=== PATIENT | female | born 1950 | race Caucasian/White ===

== ENCOUNTER → 2017-01-04 | Outpatient (CLI) | payer MEDICARE ==
--- NOTE | 2017-01-04 09:46 | MR ---
EXAMINATION TYPE: MR lumbar spine wo con DATE OF EXAM: 01/04/2017 COMPARISON: NONE HISTORY: Low back pain, leg pain TECHNIQUE: T1 and T2 axial and sagittal images of the lumbar spine are submitted. FINDINGS: There is no abnormal signal seen within the visualized spinal cord or paraspinal soft tissu es. At L1-2 there is hypertrophic arthropathy of the facet joints noted. No canal stenosis or neural fora glenn encroachment. Vertebral body hemangioma of L2. At L2-3 there is diffuse circumferential disc bulging. Arthropathy of the facet joints. Mild bilatera l foraminal encroachment and mild canal stenosis. At L3-4 there is diffuse disc bulging with severe hypertrophy of the ligamentum flavum and facet join ts and moderate to severe canal stenosis and severe bilateral foraminal encroachment greater on the r ight. Broad-based central disc protrusion noted. At L4-5 there is grade 1 anterolisthesis secondary to severe facet arthropathy. Ligamentum flavum hyp ertrophy noted there is diffuse disc bulging and moderate to severe canal stenosis with bilateral for aminal encroachment. At L5-S1 there is marked facet arthropathy. No Canal stenosis. Moderate bilateral foraminal encroachm ent greater on the right. IMPRESSION: 1. Multilevel degenerative disc disease with grade 1 anterolisthesis of L4 on L5. Multilevel severe f acet arthropathy with canal stenosis at levels L2-3, L3-4, and L4-5 with most marked changes at L3-4 and L4-5. Significant bilateral foraminal encroachment.
== END | disposition home or self-care (01) ==
LOC: RADMRIMAIN 08:41
PROVIDERS: ATTEND Orthopaedic Surgery
DX: M48.06 Spinal stenosis, lumbar region (principal); M43.16 Spondylolisthesis, lumbar region; M51.36 Other intervertebral disc degeneration, lumbar region; M46.86 Other specified inflammatory spondylopathies, lumbar region
CPT/HCPCS: 72148

== ENCOUNTER → 2017-02-13 | Outpatient (CLI) | payer MEDICARE ==
[2017-02-10 11:41] VITALS: BMI 38.7
[2017-02-13 13:09] VITALS: BP 133/67; PULSE 97; RESP 16; TEMP 98
--- NOTE | 2017-02-13 13:36 | P.CONS ---
History of Present Illness - Reason for Consult Consult date: 02/13/17 - Chief Complaint Right knee pain and numbness - History of Present Illness This is a 66-year-old female who was referred to our clinic for back pain but the patient denies any back pain at this point and she said that physical therapy has been helping her back pain however she does have right knee pain that started after her total knee replacement in June 2015 and since that time she's been having numbness above the knee joint on the right side with a feeling of burning and tightness. This feeling as not constant and there is no consistent exacerbating factors. The pain gets worse by walking and improves by sitting down but does not go away completely. The patient denies any swelling in the knee. Been using tramadol and Naprosyn to help with her pain. The pain does not wake the patient up at night. The patient denies any pain to touch. Past Medical History Past Medical History: Diabetes Mellitus, Eye Disorder, Hyperlipidemia, Hypertension, Osteoarthritis (OA) Additional Past Medical History / Comment(s): PAIN RT KNEE, CURRENT BEING TX FOR ALLERGIC REACTION TO EYE DROPS, STATES EYES RED, ITCHING,SCALY, GLAUCOMA bilaterally, History of Any Multi-Drug Resistant Organisms: None Reported Past Surgical History: Hysterectomy, Joint Replacement, Orthopedic Surgery, Tonsillectomy Additional Past Surgical History / Comment(s): 06/24/15 Total R knee arthroplasty. BARBARA CATARACT, LT CARPAL TUNNEL. RIGHT KNEE ARTHROSCOPY Past Anesthesia/Blood Transfusion Reactions: Previous Problems w/ Anesthesia Additional Past Anesthesia/Blood Transfusion Reaction / Comm: HARD TIME TO WAKE UP Past Psychological History: No Psychological Hx Reported Additional Psychological History / Comment(s): . Smoking Status: Never smoker Past Alcohol Use History: None Reported Past Drug Use History: None Reported - Past Family History Father Family Medical History: Congestive Heart Failure (CHF) Additional Family Medical History / Comment(s): Father of CHF at age 65 yrs. Mother Family Medical History: Diabetes Mellitus Medications and Allergies Home Medications Medication Instructions Recorded Confirmed Type Glimepiride [Amaryl] 4 mg PO HS 12/05/14 02/13/17 History metFORMIN HCL [Glucophage] 1,000 mg PO BID 12/05/14 02/13/17 History Glimepiride [Amaryl] 2 mg PO AC-BRKFST 02/10/17 02/13/17 History Naproxen [Naprosyn] 500 mg PO Q12HR 02/10/17 02/13/17 History diphenhydrAMINE [Benadryl] 25 mg PO QID PRN 02/10/17 02/13/17 History traMADol HCL [Ultram] 50 mg PO Q6HR PRN 02/10/17 02/13/17 History Latanoprost Ophth [Xalatan 0.005%] 1 drops BOTH EYES HS 02/13/17 02/13/17 History Losartan [Cozaar] 50 mg PO DAILY 02/13/17 02/13/17 History traMADol HCL [Ultram] 50 mg PO Q6HR PRN 02/13/17 02/13/17 History Allergies Allergy/AdvReac Type Severity Reaction Status Date / Time No Known Allergies Allergy Verified 02/13/17 12:54 Physical Exam Vitals: Vital Signs Temp Pulse Resp BP 02/13/17 12:59 98.0 F 97 16 133/67 - Psychiatric Psychiatric: A&O x's 3, appropriate affect, intact judgment & insight Neuro exam of the lower extremities showed absent deep tendon reflexes bilaterally and symmetrically. The patient has normal muscle strength in the lower extremities. There is no tenderness in the lumbar paravertebral area and no tenderness in the right greater trochanter. Straight leg raising test negative bilaterally. There is no allodynia to touch around the right knee joint and there is no swelling there also there is no tenderness at the joint line. The patient has normal pulse on the right dorsalis pedis. Assessment and Plan Plan: The patient had an MRI on the lumbar spine which shows severe lumbar stenosis at the L3 4 and L4 5 levels. The patient understands that her numbness in the right knee joint will take time and whatever injection we do on her most likely will not help her numbness however we can do one lumbar epidural steroid injection at the L3 4 level in the right paramedian approach under fluoroscopic guidance to see if this would help her right knee pain but if it does not then her pain most likely won't be coming from the knee joint itself and it is the case then we can try to do a diagnostic genicular nerve blocks. I thank you for the consultation.
== END ==
LOC: PNWHC3 12:37
PROVIDERS: ATTEND Anesthesiology
DX: M48.061 Spinal stenosis, lumbar region without neurogenic claudication (principal); I10 Essential (primary) hypertension; E78.5 Hyperlipidemia, unspecified; E11.9 Type 2 diabetes mellitus without complications; Z79.899 Other long term (current) drug therapy; Z79.84 Long term (current) use of oral hypoglycemic drugs; Z79.891 Long term (current) use of opiate analgesic
CPT/HCPCS: 99211

== ENCOUNTER → 2017-03-22 | Outpatient (CLI) | payer MEDICARE ==
[2017-03-22 13:18] VITALS: BP 198/84; PULSE 106; RESP 22; TEMP 97.9
--- NOTE | 2017-03-22 14:06 | P.PN ---
Subjective Progress Note Date: 03/22/17 This is a follow-up visit for this 66 years old female, with a chronic history of severe right knee pain and numbness and burning sensation, started approximately 2 months , after right knee replacement, she denies any fever or night sweats denies any discharge from the knee area, and she feels that the pain localized around the right knee, she is done through courses of physical therapy, which helped her knee movement, but it did not help her burning sensation, and she is currently using tramadol and naproxen, which is not helping enough to control her pain, then lumbar epidural steroid injections , few weeks ago ,right paramedian approach, at the L3-4 level and she has no benefit and Objective - Vital Signs Vital signs: Vital Signs Temp 97.9 F 03/22/17 13:13 Pulse 106 H 03/22/17 13:13 Resp 22 03/22/17 13:13 BP 198/84 03/22/17 13:13 Pulse Ox 98 03/22/17 13:13 Intake & Output 03/21/17 03/22/17 03/22/17 18:59 06:59 18:59 Weight 108.862 kg - Exam Physical Examinations : 1-Constitutiona : Cooperative , not in acute distress . 2-HEENT : nech ; supple , no Lymphadenopathy , normal thyroid size . eyes : no ptosis , no icterus, no photophobia . ENT : normal of hearing , normal oropharynx , no Thrush . 3- Respiratory : Chest clear to auscultations Bilaterally , no wheezing , no Rhonchi . 4- Cardiovascular : regular rate and rhythem , S1 , S2 , no S3 , no S4. 5- Gastrointestinal : abdomen soft no tenderness , bowel sounds positive all four quadrents , no organomegally . 6- Genitourinary : Defferred . 7- neurologic : Cranial nerve II to XII intact , no focal neurological deffecit . 8-psychatric : alert , oriented X 3 , appropriate affect , intact judgment and insight . 9-Lymphatic : no Lymphadenopathy . 10- musculoskeltal : , Lumber spine = normal moter stegnth lower extremities ,thigh and legs .5/5 deep tendon reflexes : normal Knee Jerk , normal ankle Jerk . Negative lumber facet Loading Test strait leg raising test negative Fabere test negative Right knee, full range of motion ,no restrictions, no pain and no tenderness, scar healed appropriately, no discharge Normal sensation at the knee area Assessment and Plan Plan: Assessment and plan= right knee genicular nerve neuralgia Patient will be scheduled to have right sided genicular nerve block under fluoroscopy guidance, (without steroid ) and if she had good results, the we will proceed with the radiofrequency ablation of the genicular nerve , procedure risk and benefits and alternatives discussed with the patient she agreed with proceeding, also patient could benefit from Neurontin 100 mg 3 times a day, patient should continue to use her Ultram 50 mg every 8 hours when necessary for breakthrough pain and naproxen 500 mg twice a day when necessary Time with Patient: Less than 30
== END ==
LOC: PNWHC3 12:59
PROVIDERS: ATTEND Specialist
DX: G58.8 Other specified mononeuropathies (principal); Z79.891 Long term (current) use of opiate analgesic; Z79.899 Other long term (current) drug therapy
CPT/HCPCS: 99211

== ENCOUNTER 2021-11-05 20:11 | Observation (INO) | payer MEDICARE ==
--- NOTE | 2021-11-06 00:07 | ED ---
Chest Pain HPI - General Chief Complaint: Chest Pain Stated Complaint: Chest pain,JUN Time Seen by Provider: 11/05/21 23:11 Source: patient Mode of arrival: wheelchair Limitations: no limitations - History of Present Illness Initial Comments: This patient is 71-year-old woman who complains of pain across the upper chest and at the sternal notch that started around 5 PM. She states that it was a pounding and a burning sensation. She thought that it may be her esophagus but as it was not getting better she came to be evaluated here. She also complains of having a very dry throat and nausea. MD Complaint: chest pain Onset/Timin -: hour(s) Onset: during rest Pain Location: substernal, left chest, right chest Pain Radiation: none Severity: moderate Quality: aching, other (Burning) Improves With: nothing Worsens With: nothing Anginal Symptoms: nausea Treatments Prior to Arrival: none - Related Data Home Medications Medication Instructions Recorded Confirmed Latanoprost Ophth [Xalatan 0.005%] 1 drop BOTH EYES HS 02/13/17 11/06/21 Apixaban [Eliquis] 5 mg PO BID 11/06/21 11/06/21 Cyanocobalamin (Vitamin B-12) 1,000 mcg PO DAILY 11/06/21 11/06/21 [Vitamin B-12] Dulaglutide [Trulicity] 1.5 mg SQ MO 11/06/21 11/06/21 Ferrous Sulfate [Iron (65 MG 325 mg PO BID 11/06/21 11/06/21 Elemental)] Glimepiride [Amaryl] 4 mg PO DAILY 11/06/21 11/06/21 Losartan [Cozaar] 25 mg PO DAILY 11/06/21 11/06/21 Magnesium Oxide 400 mg PO DAILY 11/06/21 11/06/21 Torsemide [Demadex] 10 mg PO DAILY 11/06/21 11/06/21 allopurinoL [Zyloprim] 200 mg PO DAILY 11/06/21 11/06/21 Previous Rx's Medication Instructions Recorded Amiodarone [Cordarone] 400 mg PO BID #180 tab 11/08/21 Metoprolol Succinate (ER) [Toprol 150 mg PO DAILY #90 tab 11/08/21 XL] Atorvastatin [Lipitor] 20 mg PO HS #30 tab 11/09/21 Allergies Allergy/AdvReac Type Severity Reaction Status Date / Time iron infusion Allergy Anaphylaxis Uncoded 11/06/21 13:06 Review of Systems ROS Statement: Those systems with pertinent positive or pertinent negative responses have been documented in the HPI. ROS Other: All systems not noted in ROS Statement are negative. Constitutional: Denies: fever, chills Respiratory: Denies: cough, dyspnea Cardiovascular: Reports: as per HPI, chest pain, palpitations. Denies: edema Gastrointestinal: Reports: nausea. Denies: abdominal pain, vomiting Genitourinary: Denies: dysuria, hematuria Musculoskeletal: Denies: back pain Skin: Denies: rash Neurological: Denies: headache EKG Findings - Dysrhythmias: Supraventricular dysrhythmia: atrial fibrillation (Rate proximally 102) - Blocks, [place], Hypertrophy, ST Abn: AV and intraventricular conduction: right bundle branch block (fixed/intermittent, complete/incomplete), left anterior fascicular block Chamber hypertrophy or enlargement: left ventricular hypertrophy or enlargement (LVE) Past Medical History Past Medical History: Diabetes Mellitus, Eye Disorder, Hyperlipidemia, Hypertension, Osteoarthritis (OA) Additional Past Medical History / Comment(s): PAIN RT KNEE, GLAUCOMA bilaterally, History of Any Multi-Drug Resistant Organisms: None Reported Past Surgical History: Hysterectomy, Joint Replacement, Orthopedic Surgery, Tonsillectomy Additional Past Surgical History / Comment(s): 06/24/15 Total R knee arthroplasty. BARBARA CATARACT, LT CARPAL TUNNEL. RIGHT KNEE ARTHROSCOPY, PAIN CLINIC PROCEDURES Past Anesthesia/Blood Transfusion Reactions: Previous Problems w/ Anesthesia Additional Past Anesthesia/Blood Transfusion Reaction / Comment(s): HARD TIME TO WAKE UP Past Psychological History: No Psychological Hx Reported Smoking Status: Never smoker Past Alcohol Use History: None Reported Past Drug Use History: None Reported - Past Family History Father Family Medical History: Congestive Heart Failure (CHF) Additional Family Medical History / Comment(s): Father of CHF at age 65 yrs. Mother Family Medical History: Diabetes Mellitus General Exam Limitations: no limitations General appearance: alert, in no apparent distress Head exam: Present: atraumatic, normocephalic Eye exam: Present: normal appearance ENT exam: Present: mucous membranes dry Neck exam: Present: normal inspection, full ROM. Absent: tenderness, meningismus Respiratory exam: Present: normal lung sounds bilaterally. Absent: respiratory distress, wheezes, rales, rhonchi, stridor, chest wall tenderness Cardiovascular Exam: Present: regular rate, irregular rhythm, normal heart sounds. Absent: systolic murmur, diastolic murmur, rubs, gallop GI/Abdominal exam: Present: soft. Absent: distended, tenderness, guarding, rebound, rigid, mass Extremities exam: Present: normal inspection, normal capillary refill. Absent: pedal edema, calf tenderness Back exam: Present: normal inspection. Absent: CVA tenderness (R), CVA tenderness (L) Neurological exam: Present: alert Skin exam: Present: warm, dry, intact, normal color. Absent: rash Course Vital Signs 11/05/21 11/06/21 11/06/21 20:12 02:51 04:10 Temperature 97.8 F Pulse Rate 102 H 112 H 105 H Respiratory 16 18 Rate Blood Pressure 130/76 124/81 O2 Sat by Pulse 98 96 Oximetry Disposition Clinical Impression: Chest pain, CHF exacerbation Disposition: ADMITTED IP TO THIS HOSP Condition: Good Is patient prescribed a controlled substance at d/c from ED?: No
--- NOTE | 2021-11-06 00:09 | XR ---
EXAMINATION TYPE: XR chest 2V DATE OF EXAM: 11/06/2021 COMPARISON: 09/09/2020 HISTORY: Chest pain TECHNIQUE: Single view FINDINGS: Heart is enlarged. There is mild pulmonary congestion. There is some blunting of the right costophrenic angle. Thoracic aorta is atheromatous. IMPRESSION: There is evidence for some mild congestive heart failure with right pleural effusion. Pul monary congestion increased compared to the exam. Pleural fluid unchanged.
[2021-11-06 00:28] LABS: INR 1.2 (<1.2); Partial Thromboplastin Time 30.1 sec (22.0-30.0); Prothrombin Time 13.1 sec (9.0-12.0)
[2021-11-06 00:35] LABS: Albumin 4.4 g/dL (3.5-5.0); Calcium 9.5 mg/dL (8.4-10.2); Magnesium 2.1 mg/dL (1.6-2.3); Potassium 4.5 mmol/L (3.5-5.1); Total Bilirubin 1.1 mg/dL (0.2-1.3); Total Protein 7.9 g/dL (6.3-8.2)
[2021-11-06 00:35] LABS: Basophils # (A) 0.1 k/uL (0-0.2); Basophils % (A) 0 %; Eosinophils # (A) 0.1 k/uL (0-0.7); Eosinophils % (A) 0 %; HCT 42.2 % (34.0-46.0); HGB 13.4 gm/dL (11.4-16.0); Hypochromasia Moderate; Lymphocytes % (A) 8 %; MCH 30.3 pg (25.0-35.0); MCHC 31.8 g/dL (31.0-37.0); MCV 95.2 fL (80.0-100.0); Mean Platelet Volume 10.4; Monocytes # (A) 0.6 k/uL (0-1.0); Monocytes % (A) 5 %; Neutrophils # (A) 10.7 k/uL (1.3-7.7); Neutrophils % (A) 86 %; Platelet Count 133 k/uL (150-450); RBC 4.43 m/uL (3.80-5.40); RDW 14.7 % (11.5-15.5); WBC 12.5 k/uL (3.8-10.6)
[2021-11-06] MEDS ORDERED: NITROGLYCERIN SL TABS 0.4 MG TAB SUBLINGUAL PRN (02:02)
[2021-11-06] MEDS ORDERED: MAG HYDROX/AL HYDROX/SIMETH 30 ML, HYOSCYAMINE ELIXIR 10 ML, LIDOCAINE VISCOUS 2% 10 ML PO ONE ×3 (02:52)
[2021-11-06] MEDS ORDERED: LORazepam 2 MG/ML INJ IV STA (02:53)
[2021-11-06 07:28] LABS: Glucose,Whole Blood 235 mg/dL (70-110)
[2021-11-06] MEDS ORDERED: FUROSEMIDE 10 MG/ML 4 ML VIAL IV STA (08:43)
[2021-11-06] MEDS: METOPROLOL SUCCINATE (ER) 100 MG TAB.ER.24H PO SCH (08:46)
[2021-11-06] MEDS: APIXABAN 5 MG TAB PO SCH ×2 (10:46→18:53)
[2021-11-06] MEDS: LOSARTAN 25 MG TAB PO SCH (10:47)
[2021-11-06 12:07] LABS: Glucose,Whole Blood 219 mg/dL (70-110)
--- NOTE | 2021-11-06 12:09 | CT ---
EXAMINATION TYPE: CT chest wo con CT DLP: 512.5 mGycm, Automated exposure control for dose reduction was used. DATE OF EXAM: 11/06/2021 11:53 AM COMPARISON: Chest radiograph from 09/10/2020. CLINICAL INDICATION:Female, 71 years old with history of shortness of breath, SOB TECHNIQUE: Multiple axial images were obtained through the chest without IV contrast. Lack of IV or o ral contrast limits evaluation of solid and hollow organ viscera. FINDINGS: LUNGS/ PLEURA: Expiratory exam with mosaic attenuation of the parenchyma likely secondary to phase of inspiration. There is small right and trace left pleural effusions with associated atelectasis. Calc ified granulomata within the right upper lobe. Mild intralobular septal thickening. Intrafissural lym ph node series 3 image 25 on the left. AIRWAY: Patent and unremarkable.. HEART: The heart is enlarged for size. There is coronary artery atherosclerosis. There is aortic valv e leaflet calcifications. Small pericardial effusion is present. MEDIASTINUM: No gross evidence of adenopathy. VASCULATURE: No aortic aneurysm. The pulmonary trunk is at the upper limits of normal measuring up t o 3.3 cm. MUSCULOSKELETAL: No acute osseous abnormalities. Multilevel disc degeneration changes are seen throug hout the spine SOFT TISSUES/LYMPH NODES: Unremarkable. LOWER NECK: No significant findings. UPPER ABDOMEN: No significant findings. IMPRESSION: 1. Cardiomegaly, pulmonary vascular congestion and bilateral pleural effusions, correlate for congest [place] heart failure. 2. Mosaic attenuation to the parenchyma likely due to patient's phase of inspiration and/or pulmonary edema. 3. Pulmonary hypertension suggested. 4. Moderate coronary artery atherosclerosis.
--- NOTE | 2021-11-06 12:27 | P.CRDCN ---
History of Present Illness Consult date: 11/06/21 Requesting physician: Alberto Ortega Reason for Consult (text): chest pain Chief complaint: chest pain History of present illness: This is a pleasant 71-year-old patient who follows with Dr. Hdez in the office. She has a past medical history of atrial fibrillation, anticoagulated on Eliquis, hypertension, hyperlipidemia, diabetes, chronic kidney disease, is a life long nonsmoker and does not consume alcohol. Presented to the emergency department with complaints of a pounding chest discomfort across her upper chest as well as a pressure/tightness in the mid chest. The discomfort occurred at rest and was accompanied by some nausea. Since arrival the harsh pounding discomfort has subsided but she continues to have constant pressure/tightness. She verbalizes she feels is related to her esophagus. EKG on admission showed atrial fibrillation with a heart rate of 102 and a right bundle branch block. Troponins have been negative 3. NT proBNP was elevated at 3790. Her BUN and creatinine are elevated at 32 and 1.95 respectively she does follow regularly with Dr. Rudd. Most recent creatinine creatinine are not available to me at this time patient says she's had kidney disease for "too long". BUN and creatinine were normal in 2016. The patient has also been complaining of worsening shortness of breath and has been following with Dr. Howard in this regard she said she's had an echocardiogram within the last year had a monitor and carotid duplex study and is scheduled soon for follow-up. She has also been complaining of orthopnea but no PND or edema. She has positional dizziness but no syncope or near syncope. She denies any complaints of palpitations, says she cannot feel the atrial fibrillation and believes that it is paroxysmal. Current home medications include allopurinol,Eliquis -milligrams by mouth twice a day, iron, glimepiride, [place], losartan 25 mg by mouth daily, magnesium, metoprolol succinate 100 mg by mouth daily, simvastatin 20 mg by mouth daily at bedtime, torsemide 10 mg by mouth daily and vitamin B12. Past Medical History Past Medical History: Diabetes Mellitus, Eye Disorder, Hyperlipidemia, Hypertension, Osteoarthritis (OA) Additional Past Medical History / Comment(s): PAIN RT KNEE, GLAUCOMA bilaterally, History of Any Multi-Drug Resistant Organisms: None Reported Past Surgical History: Hysterectomy, Joint Replacement, Orthopedic Surgery, Tonsillectomy Additional Past Surgical History / Comment(s): 06/24/15 Total R knee arthroplasty. BARBARA CATARACT, LT CARPAL TUNNEL. RIGHT KNEE ARTHROSCOPY, PAIN CLINIC PROCEDURES Past Anesthesia/Blood Transfusion Reactions: Previous Problems w/ Anesthesia Additional Past Anesthesia/Blood Transfusion Reaction / Comment(s): HARD TIME TO WAKE UP Past Psychological History: No Psychological Hx Reported Smoking Status: Never smoker Past Alcohol Use History: None Reported Past Drug Use History: None Reported - Past Family History Father Family Medical History: Congestive Heart Failure (CHF) Additional Family Medical History / Comment(s): Father of CHF at age 65 yrs. Mother Family Medical History: Diabetes Mellitus Medications and Allergies Home Medications Medication Instructions Recorded Confirmed Type Glimepiride [Amaryl] 4 mg PO HS 12/05/14 04/13/17 History metFORMIN HCL [Glucophage] 1,000 mg PO BID 12/05/14 04/13/17 History Glimepiride [Amaryl] 2 mg PO AC-BRKFST 02/10/17 04/13/17 History Naproxen [Naprosyn] 500 mg PO Q12HR PRN 02/10/17 04/13/17 History Latanoprost Ophth [Xalatan 0.005%] 1 drops BOTH EYES HS 02/13/17 04/13/17 History traMADol HCL [Ultram] 50 - 100 mg PO Q6HR PRN 02/13/17 04/13/17 History Aspirin [Adult Low Dose Aspirin EC] 81 mg PO HS 03/22/17 04/13/17 History Losartan/Hydrochlorothiazide 1 tab PO DAILY 04/11/17 04/13/17 History [Losartan-Hctz 100-12.5 mg Tab] Allergies Allergy/AdvReac Type Severity Reaction Status Date / Time No Known Allergies Allergy Verified 11/05/21 20:12 Physical Exam Vitals: Vital Signs Temp Pulse Pulse Resp BP BP Pulse Ox 11/06/21 07:17 98.2 F 138 H 24 113/76 97 11/06/21 04:10 105 H 11/06/21 02:51 112 H 18 124/81 96 11/05/21 20:12 97.8 F 102 H 16 130/76 98 Intake and Output 11/05/21 11/06/21 11/06/21 22:59 06:59 14:59 Other: Weight 99.79 kg PHYSICAL EXAMINATION: This is a 71-year-old female in no apparent distress at the time of my examination. VITAL SIGNS: Blood pressure 113/76, heart rate 138, respirations 24, temp 98.2F. Patient is 97 % on room air. HEENT: Head is atraumatic, normocephalic. Pupils are equal, round. Sclerae anicteric. Conjunctivae are clear. Mucous membranes of the mouth are moist. Neck is supple. There is no elevated jugular venous pressure. No carotid bruit is heard. CHEST EXAMINATION: Lungs revealed bibasilar crackles. No wheezes or rhonchi. Respirations even and nonlabored. HEART EXAMINATION: Heart irregular rate and rhythm, positive S1 and S2. No S3. No S4. Systolic murmur. ABDOMEN: Soft, nontender. Bowel sounds are heard. No organomegaly noted. EXTREMITIES: 1+ peripheral pulses with evidence of trace peripheral edema and no calf tenderness noted. NEUROLOGIC EXAMINATION: Patient is awake, alert and oriented x3. Results 11/05/21 00:09 11/05/21 23:45 Cardiac Enzymes 11/05/21 11/05/21 11/06/21 Range/Units 23:45 23:45 02:16 AST 59 H (14-36) U/L Troponin I <0.012 <0.012 (0.000-0.034) ng/mL 11/06/21 Range/Units 05:24 AST (14-36) U/L Troponin I <0.012 (0.000-0.034) ng/mL Coagulation 11/05/21 Range/Units 23:45 PT 13.1 H (9.0-12.0) sec APTT 30.1 H (22.0-30.0) sec CBC 11/05/21 Range/Units 00:09 WBC 12.5 H (3.8-10.6) k/uL RBC 4.43 (3.80-5.40) m/uL Hgb 13.4 (11.4-16.0) gm/dL Hct 42.2 (34.0-46.0) % Plt Count 133 L (150-450) k/uL Comprehensive Metabolic Panel 11/05/21 Range/Units 23:45 Sodium 138 (137-145) mmol/L Potassium 4.5 (3.5-5.1) mmol/L Chloride 103 (98-107) mmol/L Carbon Dioxide 25 (22-30) mmol/L BUN 32 H (7-17) mg/dL Creatinine 1.95 H (0.52-1.04) mg/dL Glucose 215 H (74-99) mg/dL Calcium 9.5 (8.4-10.2) mg/dL AST 59 H (14-36) U/L ALT 27 (4-34) U/L Alkaline Phosphatase 214 H (38-126) U/L Total Protein 7.9 (6.3-8.2) g/dL Albumin 4.4 (3.5-5.0) g/dL Current Medications Generic Name Dose Route Start Last Admin Trade Name Freq PRN Reason Stop Dose Admin Aspirin 325 mg 11/07/21 09:00 Aspirin 325 Mg Tab PO DAILY ALIE Metoprolol Succinate 100 mg 11/06/21 09:00 Metoprolol Succinate (Er) 100 Mg Tab.Er.24h PO DAILY ALIE Nitroglycerin 0.4 mg 11/06/21 02:02 Nitroglycerin Sl Tabs 0.4 Mg Tab SUBLINGUAL Q5M PRN Chest Pain Sodium Chloride 10 ml 11/06/21 09:00 Sodium Chloride 0.9% Flush 10 Ml Syringe IV BID ALIE Intake and Output 11/05/21 11/06/21 11/06/21 22:59 06:59 14:59 Other: Weight 99.79 kg 11/05/21 00:09 11/05/21 23:45 Assessment and Plan Assessment: #1 symptoms of chest discomfort, acute coronary event has been ruled out, troponins negative 3 #2 atrial fibrillation, duration unknown, with rapid ventricular response, anticoagulated on Eliquis #3 congestive heart failure, likely diastolic LV systolic function unknown #4 hypertension #5 hyperlipidemia #6 diabetes #7 chronic kidney disease Plan: From cardiology perspective we'll obtain 2-D echo with Doppler study to assess cardiac structure and function. We will obtain records from the office. We will resume anticoagulation, losartan, metoprolol, diuretics and statin. We will give 1 dose of IV Lasix 40 mg. Discontinue aspirin. Recheck kidney function electrolytes in the morning. We'll continue to follow the patient and provide further recommendations accordingly. PREP MANAGER note has been reviewed, I agree with a documented findings and plan of care. Patient was seen and examined.
--- NOTE | 2021-11-06 14:28 | HP ---
HISTORY AND PHYSICAL DATE OF SERVICE: 11/06/2021 CHIEF COMPLAINT: Chest pain. HISTORY OF PRESENT ILLNESS: This 71-year-old woman with a past medical history of multiple medical problems, including diabetes mellitus, hypertension, hyperlipidemia, was complaining of chest pain which was felt in the anterior part of the chest. Patient weakness also. Patient came to [facility] and was admitted for further evaluation and treatment. Cardiology consultation is underway at this time. The D-dimer is elevated at 1.28. There is no history of any fever, rigor or chills at this time. PAST MEDICAL HISTORY: History of diabetes mellitus, hypertension, hyperlipidemia. MEDICATIONS: Home medications are reviewed, which include zyloprim. Doses and the rest of the medications are reviewed. ALLERGIES: IRON. FAMILY HISTORY: History of diabetes mellitus. SOCIAL HISTORY: No history of smoking. No history of alcohol intake. REVIEW OF SYSTEMS: Fourteen-point review of systems negative except as mentioned earlier. PHYSICAL EXAMINATION: Pulse is 138, respiration 24, temperature normal, pulse ox 97% on room air. HEENT: Conjunctivae normal. NECK: No jugular venous distention. CARDIOVASCULAR: S1, S2 muffled. RESPIRATION: Breath sounds diminished at the bases. A few scattered rhonchi. ABDOMEN: Soft, non-tender. LEGS: No edema. No swelling. NERVOUS SYSTEM: No focal deficit. LABS: Reviewed. EKG reviewed. ASSESSMENT: 1. Chest pain for unstable angina. 2. Elevated D-dimer. 3. Atrial fibrillation. 4. Multiple medical problems. RECOMMENDATIONS AND DISCUSSION: In this 71-year-old woman who presented with multiple complex medical issues, we will monitor the patent closely, closely follow with Cardiology. Recommend a V/Q scan as well as CT scan of the chest. Prognosis is guarded because of multiple complex medical issues. Further recommendations to follow. The patient requires further testing to rule out the possibility of acute coronary artery disease. Once again, prognosis is guarded because of multiple complex medical issues. We will monitor blood sugars closely. MMODL / IJN: [id number] / MTDD
--- NOTE | 2021-11-06 16:21 | NM ---
EXAMINATION TYPE: NM pul vent and perfuse DATE OF EXAM: 11/06/2021 COMPARISON: NONE HISTORY: Short of breath TECHNIQUE: Utilizing inhalation of 68.8 mCi Tc 99m DTPA aerosol and intravenous injection of 4.9 mCi of Tc 99m MAA, ventilation and perfusion images are acquired post injection in multiple projections. FINDINGS: There is matching ventilation and perfusion defects involving the lingula left upper lobe and the rig ht posterior lung base. These are consistent with airway disease. There is no ventilation/perfusion m ismatch. Heart appears enlarged. Chest x-ray yesterday appears to show some cardiomegaly with pulmona ry congestion. No pulmonary consolidation. IMPRESSION: There is evidence for some bilateral airway disease. There is low probability of pulmonary embolism.
[2021-11-06 16:46] LABS: Glucose,Whole Blood 130 mg/dL (70-110)
[2021-11-06] MEDS: ATORVASTATIN 20 MG TAB PO SCH (18:54)
[2021-11-06] MEDS ORDERED: METOPROLOL SUCCINATE (ER) 50 MG TAB.ER.24H PO STA (21:54)
[2021-11-07] MEDS ORDERED: METOPROLOL SUCCINATE (ER) 50 MG TAB.ER.24H PO STA (00:14)
[2021-11-07 06:56] LABS: Glucose,Whole Blood 118 mg/dL (70-110)
[2021-11-07] MEDS: APIXABAN 5 MG TAB PO SCH ×2 (08:39→19:15)
[2021-11-07] MEDS: METOPROLOL SUCCINATE (ER) 100 MG TAB.ER.24H PO SCH (08:39)
[2021-11-07] MEDS: FUROSEMIDE 20 MG TAB PO SCH (08:39)
[2021-11-07] MEDS: LOSARTAN 25 MG TAB PO SCH (08:39)
[2021-11-07] MEDS ORDERED: ASPIRIN 325 MG TAB PO SCH (09:00)
[2021-11-07 10:38] LABS: African American GFR (CKD) 29.4 (60.0-200.0); BUN/Creat Ratio 14.56 Ratio (12.00-20.00); Blood Urea Nitrogen 28.1 mg/dL (9.0-27.0); Calcium 8.8 mg/dL (8.7-10.3); Chloride 98 mmol/L (96-109); Chol/HDL Ratio 3.27 Ratio; Glucose 119 mg/dL (70-110); LDL Cholesterol,Calculated 50.8 mg/dL (0.0-131.0); Non-African American GFR(CKD) 25.4 (60.0-200.0); Potassium 4.6 mmol/L (3.5-5.5); Sodium 133 mmol/L (135-145); VLDL Calculation 16.02 mg/dL (5.00-40.00)
[2021-11-07] MEDS: allopurinoL 100 MG TAB PO SCH (11:43)
[2021-11-07] MEDS: CYANOCOBALAMIN 500 MCG TAB PO SCH (11:43)
[2021-11-07] MEDS: AMIODARONE 200 MG TAB PO SCH ×2 (11:44→19:15)
--- NOTE | 2021-11-07 14:55 | P.PN ---
Subjective Progress Note Date: 11/07/21 This is a pleasant 71-year-old patient who follows with Dr. Hdez in the office. She has a past medical history of atrial fibrillation, anticoagulated on Eliquis, hypertension, hyperlipidemia, diabetes, chronic kidney disease, is a life long nonsmoker and does not consume alcohol. Presented to the emergency department with complaints of a pounding chest discomfort across her upper chest as well as a pressure/tightness in the mid chest. The discomfort occurred at rest and was accompanied by some nausea. Since arrival the harsh pounding discomfort has subsided but she continues to have constant pressure/tightness. She verbalizes she feels is related to her esophagus. EKG on admission showed atrial fibrillation with a heart rate of 102 and a right bundle branch block. Troponins have been negative 3. NT proBNP was elevated at 3790. Her BUN and creatinine are elevated at 32 and 1.95 respectively she does follow regularly with Dr. Rudd. Most recent creatinine creatinine are not available to me at this time patient says she's had kidney disease for "too long". BUN and creatinine were normal in 2015. The patient has also been complaining of worsening shortness of breath and has been following with Dr. Howard in this regard she said she's had an echocardiogram within the last year had a monitor and carotid duplex study and is scheduled soon for follow-up. She has also been complaining of orthopnea but no PND or edema. She has positional dizziness but no syncope or near syncope. She denies any complaints of palpitations, says she cannot feel the atrial fibrillation and believes that it is paroxysmal. Current home medications include allopurinol, Eliquis 5 mg by mouth twice a day, iron, glimepiride, [place], losartan 25 mg by mouth daily, magnesium, metoprolol succinate 100 mg by mouth daily, simvastatin 20 mg by mouth daily at bedtime, torsemide 10 mg by mouth daily and vitamin B12. 11/07/2021 Patient was seen and examined resting comfortably in a chair at the bedside. After reviewing records from the office it appears patient's atrial fibrillation is persistent with evidence of poorly controlled heart rates on recent Holter monitor. Patient also underwent an echocardiogram in September of this year which showed a normal LV systolic function. Upon examination this morning the patient overall is feeling a bit better. Her renal function is stable. D-dimer yes terday was elevated and she underwent VQ scan which showed low probability for PE with evidence of bilateral airspace disease. Computed tomography scan of the chest without contrast showed evidence of cardiomegaly, pulmonary vascular congestion and bilateral pleural effusions, mosaic attenuation to the parenchyma related to patient's face of inspiration and/or pulmonary edema, pulmonary hypertension suggested, moderate coronary artery atherosclerosis. Patient did have a stress test within the last year that showed mild distal apical area of reversibility. Heart rate remains poorly controlled and she received 2 extra doses of metoprolol succinate 50 mg a day. Objective - Vital Signs Vital signs: Vital Signs Temp 98.6 F 11/07/21 07:00 Pulse 120 H 11/07/21 07:00 Resp 24 11/07/21 07:00 BP 109/62 11/07/21 07:00 Pulse Ox 90 L 11/07/21 07:00 FiO2 Intake & Output 11/06/21 11/07/21 11/07/21 18:59 06:59 18:59 Intake Total 538 118 Balance 538 118 Weight 99.79 kg Intake: Oral 538 118 Other: # Voids 0 2 - Exam HEENT: Head is atraumatic, normocephalic. Pupils are equal, round. Sclerae anicteric. Conjunctivae are clear. Mucous membranes of the mouth are moist. Neck is supple. There is no elevated jugular venous pressure. No carotid bruit is heard. CHEST EXAMINATION: Lungs revealed bibasilar crackles. No wheezes or rhonchi. Respirations even and nonlabored. HEART EXAMINATION: Heart irregular rate and rhythm, positive S1 and S2. No S3. No S4. Systolic murmur. ABDOMEN: Soft, nontender. Bowel sounds are heard. No organomegaly noted. EXTREMITIES: 1+ peripheral pulses with evidence of trace peripheral edema and no calf tenderness noted. NEUROLOGIC EXAMINATION: Patient is awake, alert and oriented x3. - Labs CBC & Chem 7: 11/05/21 00:09 11/07/21 05:41 Labs: Abnormal Lab Results - Last 24 Hours (Table) 11/06/21 11/06/21 11/06/21 Range/Units 12:02 12:05 16:44 D-Dimer 1.28 H (<0.60) mg/L FEU Sodium (135-145) mmol/L BUN (9.0-27.0) mg/dL Creatinine (0.6-1.5) mg/dL Est GFR (CKD-EPI)AfAm (60.0-200.0) Est GFR (CKD-EPI)NonAf (60.0-200.0) Glucose (70-110) mg/dL POC Glucose (mg/dL) 219 H 130 H (70-110) mg/dL HDL Cholesterol (40.00-60.00) mg/dL 11/07/21 11/07/21 Range/Units 05:41 06:54 D-Dimer (<0.60) mg/L FEU Sodium 133 L (135-145) mmol/L BUN 28.1 H (9.0-27.0) mg/dL Creatinine 1.9 H (0.6-1.5) mg/dL Est GFR (CKD-EPI)AfAm 29.4 L (60.0-200.0) Est GFR (CKD-EPI)NonAf 25.4 L (60.0-200.0) Glucose 119 H (70-110) mg/dL POC Glucose (mg/dL) 118 H (70-110) mg/dL HDL Cholesterol 29.40 L (40.00-60.00) mg/dL Assessment and Plan Assessment: #1 symptoms of chest discomfort, acute coronary event has been ruled out, troponins negative 3 #2 atrial fibrillation, long-standing persistent, with rapid ventricular response, anticoagulated on Eliquis #3 congestive heart failure with preserved LV systolic function #4 hypertension #5 hyperlipidemia #6 diabetes #7 chronic kidney disease Plan: From cardiology's perspective we will add amiodarone for rate control. Continue to monitor on telemetry. We will continue to follow the patient and provide further recommendations accordingly. SENIOR PARTNER note has been reviewed, I agree with a documented findings and plan of care. Patient was seen and examined.
--- NOTE | 2021-11-07 15:11 | P.PN ---
Progress Note - Text Progress Note Date: 11/07/21 Hospital course: This is a 71-year-old patient who follows with Dr. Douglas Johnston. Chronic sta ble medical conditions include diabetes, hypertension, hyperlipidemia, osteoarthritis. Also significant follows with Dr. Rudd. Her air crew member is Dr. Howard. Patient presented with chest pain and shortness of breath with exertion. November 07: I assumed care from Dr. Ruiz. Patient been up to the bathroom. No chest pain. PE was ruled out with VQ scan. Started on oral amiodarone by cardiology. Oral intake is fair. Discussed with patient. Active Medications Allopurinol (Allopurinol 100 Mg Tab) 200 mg PO DAILY [facility], [facility] Last Admin: 11/07/21 11:43 Dose: 200 mg Amiodarone HCl (Amiodarone 200 Mg Tab) 400 mg PO BID [facility] Last Admin: 11/07/21 11:44 Dose: 400 mg Apixaban (Apixaban 5 Mg Tab) 5 mg PO BID [facility], [facility]; Protocol Last Admin: 11/07/21 08:39 Dose: 5 mg Atorvastatin Calcium (Atorvastatin 20 Mg Tab) 20 mg PO HS [facility] Last Admin: 11/06/21 18:54 Dose: 20 mg Cyanocobalamin (Cyanocobalamin 500 Mcg Tab) 1,000 mcg PO DAILY [facility], [facility] Last Admin: 11/07/21 11:43 Dose: 1,000 mcg Ferrous Sulfate (Ferrous Sulfate 325 Mg Tab) 325 mg PO BID [facility] Furosemide (Furosemide 20 Mg Tab) 20 mg PO DAILY [facility] Last Admin: 11/07/21 08:39 Dose: 20 mg Latanoprost (Latanoprost 0.005% Ophth Drops 2.5 Ml Btl) 1 drops [facility] Losartan Potassium (Losartan 25 Mg Tab) 25 mg PO DAILY [facility] Last Admin: 11/07/21 08:39 Dose: 25 mg Metoprolol Succinate (Metoprolol Succinate (Er) 100 Mg Tab.Er.24h) 100 mg PO DAILY [facility] Last Admin: 11/07/21 08:39 Dose: 100 mg Nitroglycerin (Nitroglycerin Sl Tabs 0.4 Mg Tab) 0.4 mg SUBLINGUAL Q5M PRN PRN Reason: Chest Pain Sodium Chloride (Sodium Chloride 0.9% Flush 10 Ml Syringe) 10 ml IV BID [facility] Last Admin: 11/07/21 11:45 Dose: Not Given On examination: VITAL SIGNS: [98.3, 126, 24, 99 x 67, 96% on 2 L] GENERAL APPEARANCE: Sitting up in a chair, awake, tired HEENT: Normal external appearance of nose and ear. Oral cavity normal EYES: Pupils equal. Conjunctiva normal. NECK: JVD raised. Mass not palpable. RESPIRATORY: Respiratory effort normal. Lungs clear to auscultation. CARDIOVASCULAR: Heart sounds irregular. No edema. ABDOMEN: Soft. Liver and spleen not palpable. No tenderness. No mass palpable. PSYCHIATRY: Alert and oriented x3. Mood and affect normal. MUSCULAR skeletal: Evidence of OA INVESTIGATIONS, reviewed in the clinical context: White count 12.5 hemoglobin 13.4 platelets 133 potassium 4.5 BUN 32 creatinine 1.95 Troponin I 3 negative ProBNP 3790 VQ scan: Low probably for pulmonary embolism Chest without contrast: Cardiomegaly. No avascular congestion. Bilateral pleural effusion. Pulmonary hypertension suggested. Some coronary artery atherosclerosis. Assessment and plan: -Persistent atrial fibrillation, rate uncontrolled Eliquis. Started on amiodarone 400 mg twice a day today. Toprol-XL 100 mg daily. -Hyperuricemia, gout gout Allopurinol 200 mg a day -Hyperlipidemia Zocor 20 mg daily at bedtime -Essential hypertension Toprol-XL 100 mg day. Cozaar 25 mg a day -Diabetes mellitus type 2 on oral hypoglycemic Amaryl 4 mg daily. Follow Accu-Cheks. Chronicity injection -Vitamin B12 deficiency Thousand micrograms by mouth daily -Acute on chronic congestive heart failure exacerbation, EF not known On diuretics. Fluid restriction added to 1500 mL a day. At fluid restriction 1500 mL daily. Amiodarone 400 mg twice a day added by cartilage he. Discussed with patient. Activity as tolerated.
[2021-11-07] MEDS: LATANOPROST 0.005% OPHTH DROPS 2.5 ML BTL BOTH EYES SCH (19:16)
[2021-11-07] MEDS: ATORVASTATIN 20 MG TAB PO SCH (19:16)
[2021-11-07] MEDS: FERROUS SULFATE 325 MG TAB PO SCH (19:16)
[2021-11-08 07:17] LABS: Glucose,Whole Blood 146 mg/dL (70-110)
--- NOTE | 2021-11-08 08:36 | P.PN ---
Subjective Progress Note Date: 11/08/21 HISTORY OF PRESENT ILLNESS: This is a pleasant 71-year-old patient who follows with Dr. Hdez in the office. She has a past medical history of atrial fibrillation, anticoagulated on Eliquis, hypertension, hyperlipidemia, diabetes, chronic kidney disease, is a life long nonsmoker and does not consume alcohol. Presented to the emergency department with complaints of a pounding chest discomfort across her upper chest as well as a pressure/tightness in the mid chest. The discomfort occurred at rest and was accompanied by some nausea. Since arrival the harsh pounding discomfort has subsided but she continues to have constant pressure/tightness. She verbalizes she feels is related to her esophagus. EKG on admission showed atrial fibrillation with a heart rate of 102 and a right bundle branch block. Troponins have been negative 3. NT proBNP was elevated at 3790. Her BUN and creatinine are elevated at 32 and 1.95 respectively she does follow regularly with Dr. Rudd. Most recent creatinine creatinine are not available to me at this time patient says she's had kidney disease for "too long". BUN and creatinine were normal in 2016. The patient has also been complaining of worsening shortness of breath and has been following with Dr. Howard in this regard she said she's had an echocardiogram within the last year had a monitor and carotid duplex study and is scheduled soon for follow-up. She has also been complaining of orthopnea but no PND or edema. She has positional dizziness but no syncope or near syncope. She denies any complaints of palpitations, says she cannot feel the atrial fibrillation and believes that it is paroxysmal. Current home medications include allopurinol, Eliquis 5 mg by mouth twice a day, iron, glimepiride, [place], losartan 25 mg by mouth daily, magnesium, metoprolol succinate 100 mg by mouth daily, simvastatin 20 mg by mouth daily at bedtime, torsemide 10 mg by mouth daily and vitamin B12. 11/07/2021 Patient was seen and examined resting comfortably in a chair at the bedside. After reviewing records from the office it appears patient's atrial fibrillation is persistent with evidence of poorly controlled heart rates on recent Holter monitor. Patient also underwent an echocardiogram in September of this year which bushra wed a normal LV systolic function. Upon examination this morning the patient overall is feeling a bit better. Her renal function is stable. D-dimer yesterday was elevated and she underwent VQ scan which showed low probability for PE with evidence of bilateral airspace disease. Computed tomography scan of the chest without contrast showed evidence of cardiomegaly, pulmonary vascular congestion and bilateral pleural effusions, mosaic attenuation to the parenchyma related to patient's face of inspiration and/or pulmonary edema, pulmonary hypertension suggested, moderate coronary artery atherosclerosis. Patient did have a stress test within the last year that showed mild distal apical area of reversibility. Heart rate remains poorly controlled and she received 2 extra doses of metoprolol succinate 50 mg a day. 11/08/2021 Patient examined this morning. Patient is sitting up in the chair. She denies chest pain or pressure. She denies shortness of breath. She denies any palpitations. Denies dizziness or lightheadedness. Telemetry reveals atrial fibrillation with a heart rate ranging between 110-115. Blood pressure 106/77. Patient is hoping to be discharged home today. PHYSICAL EXAM: VITAL SIGNS: Reviewed. GENERAL: Well-developed in no acute distress. NECK: Supple. No JVD or thyromegaly LUNGS: Respirations even and unlabored. Lungs essentially clear to auscultation bilaterally. HEART: Irregular rate and rhythm. S1 and S2 heard. Systolic murmur. EXTREMITIES: Normal range of motion. No clubbing or cyanosis. Peripheral pulses intact. No lower extremity edema ASSESSMENT: #1 symptoms of chest discomfort, acute coronary event has been ruled out, troponins negative 3 #2 atrial fibrillation, long-standing persistent, with rapid ventricular response, anticoagulated on Eliquis #3 congestive heart failure with preserved LV systolic function #4 hypertension #5 hyperlipidemia #6 diabetes #7 chronic kidney disease PLAN: Continue current cardiac medications Continue amiodarone Increase metoprolol succinate to 150 mg daily Continue telemetry monitoring If patient's heart rates are improved by this afternoon, she may be discharged today from a cardiac standpoint and follow up on an outpatient basis Further recommendations pending patient course Nurse practitioner note has been reviewed by physician. Signing provider agrees with the documented findings, assessment, and plan of care. Objective - Vital Signs Vital signs: Vital Signs Temp 97.8 F 11/08/21 07:00 Pulse 105 H 11/08/21 07:00 Resp 18 11/08/21 07:00 BP 106/77 11/08/21 07:00 Pulse Ox 97 07/04/22 07:00 FiO2 Intake & Output 11/07/21 11/08/21 11/08/21 18:59 06:59 18:59 Intake Total 236 200 240 Balance 236 200 240 Intake: Oral 236 200 240 Other: # Voids 1 - Labs CBC & Chem 7: 11/05/21 00:09 11/07/21 05:41 Labs: Abnormal Lab Results - Last 24 Hours (Table) 11/07/21 11/08/21 Range/Units 05:41 06:57 Sodium 133 L (135-145) mmol/L BUN 28.1 H (9.0-27.0) mg/dL Creatinine 1.9 H (0.6-1.5) mg/dL Est GFR (CKD-EPI)AfAm 29.4 L (60.0-200.0) Est GFR (CKD-EPI)NonAf 25.4 L (60.0-200.0) Glucose 119 H (70-110) mg/dL POC Glucose (mg/dL) 146 H (70-110) mg/dL HDL Cholesterol 29.40 L (40.00-60.00) mg/dL
[2021-11-08] MEDS: APIXABAN 5 MG TAB PO SCH ×2 (08:39→20:55)
[2021-11-08] MEDS: CYANOCOBALAMIN 500 MCG TAB PO SCH (08:39)
[2021-11-08] MEDS: FERROUS SULFATE 325 MG TAB PO SCH ×2 (08:40→20:55)
[2021-11-08] MEDS: AMIODARONE 200 MG TAB PO SCH ×2 (08:40→20:55)
[2021-11-08] MEDS: FUROSEMIDE 20 MG TAB PO SCH (08:40)
[2021-11-08] MEDS: allopurinoL 100 MG TAB PO SCH (08:40)
[2021-11-08] MEDS: METOPROLOL SUCCINATE (ER) 50 MG TAB.ER.24H PO SCH (08:48)
[2021-11-08] MEDS: LOSARTAN 25 MG TAB PO SCH (08:48)
[2021-11-08 11:53] LABS: Glucose,Whole Blood 266 mg/dL (70-110)
--- NOTE | 2021-11-08 15:51 | P.PN ---
Progress Note - Text Progress Note Date: 11/08/21 Hospital course: This is a 71-year-old patient who follows with Dr. Douglas Johnston. Chronic sta ble medical conditions include diabetes, hypertension, hyperlipidemia, osteoarthritis. Also significant follows with Dr. Rudd. Her decorating and assembly supervisor is Dr. Howard. Patient presented with chest pain and shortness of breath with exertion. November 07: I assumed care from Dr. Ruiz. Patient been up to the bathroom. No chest pain. PE was ruled out with VQ scan. Started on oral amiodarone by cardiology. Oral intake is fair. Discussed with patient. November 08: Patient heart rate up to 120s addressed today. Dose of Lopressor increased. Had a lengthy discussion with the patient. Symptoms medications discussed. Increase activity as tolerated. We will watch blood pressure and heart rate closely. Active Medications Allopurinol (Allopurinol 100 Mg Tab) 200 mg PO DAILY [facility], [facility] Last Admin: 11/08/21 08:40 Dose: 200 mg Amiodarone HCl (Amiodarone 200 Mg Tab) 400 mg PO BID [facility] Last Admin: 11/08/21 08:40 Dose: 400 mg Apixaban (Apixaban 5 Mg Tab) 5 mg PO BID [facility], [facility]; Protocol Last Admin: 11/08/21 08:39 Dose: 5 mg Atorvastatin Calcium (Atorvastatin 20 Mg Tab) 20 mg PO [facility] Last Admin: 11/07/21 19:16 Dose: 20 mg Cyanocobalamin (Cyanocobalamin 500 Mcg Tab) 1,000 mcg PO DAILY [facility] Last Admin: 11/08/21 08:39 Dose: 1,000 mcg Ferrous Sulfate (Ferrous Sulfate 325 Mg Tab) 325 mg PO BID [facility] Last Admin: 11/08/21 08:40 Dose: 325 mg Furosemide (Furosemide 20 Mg Tab) 20 mg PO DAILY [facility] Last Admin: 11/08/21 08:40 Dose: 20 mg Latanoprost (Latanoprost 0.005% Ophth Drops 2.5 Ml Btl) 1 drops [facility] Last Admin: 11/07/21 19:16 Dose: 1 drops Losartan Potassium (Losartan 25 Mg Tab) 25 mg PO DAILY [facility] Last Admin: 11/08/21 08:48 Dose: 25 mg Metoprolol Succinate (Metoprolol Succinate (Er) 50 Mg Tab.Er.24h) 150 mg PO DAILY [facility] Last Admin: 11/08/21 08:48 Dose: 150 mg Nitroglycerin (Nitroglycerin Sl Tabs 0.4 Mg Tab) 0.4 mg SUBLINGUAL Q5M PRN PRN Reason: Chest Pain Sodium Chloride (Sodium Chloride 0.9% Flush 10 Ml Syringe) 10 ml IV BID [facility] Last Admin: 11/08/21 12:23 Dose: Not Given On examination: VITAL SIGNS: 98.6, 105, 18, 10 6 x 77, 97% room air GENERAL APPEARANCE: up in a chair, awake, HEENT: Normal external appearance of nose and ear. Oral cavity normal EYES: Pupils equal. Conjunctiva normal. NECK: JVD raised. Mass not palpable. RESPIRATORY: Respiratory effort normal. Lungs clear to auscultation. CARDIOVASCULAR: Heart sounds irregular. No edema. ABDOMEN: Soft. Liver and spleen not palpable. No tenderness. No mass palpable. PSYCHIATRY: Alert and oriented x3. Mood and affect normal. MUSCULAR skeletal: Evidence of OA INVESTIGATIONS, reviewed in the clinical context: White count 12.5 hemoglobin 13.4 platelets 133 potassium 4.5 BUN 32 creatinine 1.95 Troponin I 3 negative ProBNP 3790 VQ scan: Low probably for pulmonary embolism Chest without contrast: Cardiomegaly. No avascular congestion. Bilateral pleural effusion. Pulmonary hypertension suggested. Some coronary artery atherosclerosis. Assessment and plan: -Persistent atrial fibrillation, rate uncontrolled Eliquis. amiodarone 400 mg twice a day today. Toprol-XL increased to 150 mg daily. -Hyperuricemia, gout gout Allopurinol 200 mg a day -Hyperlipidemia Zocor 20 mg daily at bedtime -Essential hypertension Toprol-XL 100 mg day. Cozaar 25 mg a day -Diabetes mellitus type 2 on oral hypoglycemic Amaryl 4 mg daily. Follow Accu-Cheks. Chronicity injection -Vitamin B12 deficiency Thousand micrograms by mouth daily -Acute on chronic congestive heart failure exacerbation, EF not known On diuretics. Fluid restriction added to 1500 mL a day. Continue fluid restriction 1500 mL daily. Amiodarone 400 mg twice a day . Toprol-XL increased to 150 mg a day. Increase activity. Discussed at length with the patient. Time spent today about 40 minutes with over 25 minutes of discussion.
[2021-11-08 17:23] LABS: Glucose,Whole Blood 186 mg/dL (70-110)
[2021-11-08 20:43] LABS: Glucose,Whole Blood 116 mg/dL (70-110)
[2021-11-08] MEDS: ATORVASTATIN 20 MG TAB PO SCH (20:55)
[2021-11-08] MEDS: LATANOPROST 0.005% OPHTH DROPS 2.5 ML BTL BOTH EYES SCH (20:56)
[2021-11-09 06:55] VITALS: BP 106/78; PULSE 105; RESP 18; TEMP 97.9
[2021-11-09 07:11] LABS: Glucose,Whole Blood 126 mg/dL (70-110)
[2021-11-09] MEDS: LOSARTAN 25 MG TAB PO SCH (08:25)
[2021-11-09] MEDS: AMIODARONE 200 MG TAB PO SCH (08:25)
[2021-11-09] MEDS: APIXABAN 5 MG TAB PO SCH (08:25)
[2021-11-09] MEDS: FERROUS SULFATE 325 MG TAB PO SCH (08:25)
[2021-11-09] MEDS: allopurinoL 100 MG TAB PO SCH (08:25)
[2021-11-09] MEDS: METOPROLOL SUCCINATE (ER) 50 MG TAB.ER.24H PO SCH (08:25)
[2021-11-09] MEDS: CYANOCOBALAMIN 500 MCG TAB PO SCH (08:25)
[2021-11-09] MEDS: FUROSEMIDE 20 MG TAB PO SCH (08:25)
--- NOTE | 2021-11-09 09:51 | P.PN ---
Subjective Progress Note Date: 11/09/21 HISTORY OF PRESENT ILLNESS: This is a pleasant 71-year-old patient who follows with Dr. Hdez in the office. She has a past medical history of atrial fibrillation, anticoagulated on Eliquis, hypertension, hyperlipidemia, diabetes, chronic kidney disease, is a life long nonsmoker and does not consume alcohol. Presented to the emergency department with complaints of a pounding chest discomfort across her upper chest as well as a pressure/tightness in the mid chest. The discomfort occurred at rest and was accompanied by some nausea. Since arrival the harsh pounding discomfort has subsided but she continues to have constant pressure/tightness. She verbalizes she feels is related to her esophagus. EKG on admission showed atrial fibrillation with a heart rate of 102 and a right bundle branch block. Troponins have been negative 3. NT proBNP was elevated at 3790. Her BUN and creatinine are elevated at 32 and 1.95 respectively she does follow regularly with Dr. Rudd. Most recent creatinine creatinine are not available to me at this time patient says she's had kidney disease for "too long". BUN and creatinine were normal in 2016. The patient has also been complaining of worsening shortness of breath and has been following with Dr. Howard in this regard she said she's had an echocardiogram within the last year had a monitor and carotid duplex study and is scheduled soon for follow-up. She has also been complaining of orthopnea but no PND or edema. She has positional dizziness but no syncope or near syncope. She denies any complaints of palpitations, says she cannot feel the atrial fibrillation and believes that it is paroxysmal. Current home medications include allopurinol, Eliquis 5 mg by mouth twice a day, iron, glimepiride, [place], losartan 25 mg by mouth daily, magnesium, metoprolol succinate 100 mg by mouth daily, simvastatin 20 mg by mouth daily at bedtime, torsemide 10 mg by mouth daily and vitamin B12. 11/07/2021 Patient was seen and examined resting comfortably in a chair at the bedside. After reviewing records from the office it appears patient's atrial fibrillation is persistent with evidence of poorly controlled heart rates on recent Holter monitor. Patient also underwent an echocardiogram in September of this year which bushra wed a normal LV systolic function. Upon examination this morning the patient overall is feeling a bit better. Her renal function is stable. D-dimer yesterday was elevated and she underwent VQ scan which showed low probability for PE with evidence of bilateral airspace disease. Computed tomography scan of the chest without contrast showed evidence of cardiomegaly, pulmonary vascular congestion and bilateral pleural effusions, mosaic attenuation to the parenchyma related to patient's face of inspiration and/or pulmonary edema, pulmonary hypertension suggested, moderate coronary artery atherosclerosis. Patient did have a stress test within the last year that showed mild distal apical area of reversibility. Heart rate remains poorly controlled and she received 2 extra doses of metoprolol succinate 50 mg a day. 11/08/2021 Patient examined this morning. Patient is sitting up in the chair. She denies chest pain or pressure. She denies shortness of breath. She denies any palpitations. Denies dizziness or lightheadedness. Telemetry reveals atrial fibrillation with a heart rate ranging between 110-115. Blood pressure 106/77. Patient is hoping to be discharged home today. 11/09/2021 Patient examined this morning. Patient is up ambulating in her room. She de nies chest pain or pressure. She denies shortness of breath. Heart rate is well controlled this morning. She is hoping to be discharged home today. PHYSICAL EXAM: VITAL SIGNS: Reviewed. GENERAL: Well-developed in no acute distress. NECK: Supple. No JVD or thyromegaly LUNGS: Respirations even and unlabored. Lungs essentially clear to auscultation bilaterally. HEART: Irregular rate and rhythm. S1 and S2 heard. Systolic murmur. EXTREMITIES: Normal range of motion. No clubbing or cyanosis. Peripheral pulses intact. No lower extremity edema ASSESSMENT: #1 symptoms of chest discomfort, acute coronary event has been ruled out, troponins negative 3 #2 atrial fibrillation, long-standing persistent, with rapid ventricular response, anticoagulated on Eliquis #3 congestive heart failure with preserved LV systolic function #4 hypertension #5 hyperlipidemia #6 diabetes #7 chronic kidney disease PLAN: Continue current cardiac medications Patient is stable for discharge home today from a cardiac standpoint Nurse practitioner note has been reviewed by physician. Signing provider agrees with the documented findings, assessment, and plan of care. Objective - Vital Signs Vital signs: Vital Signs Temp 97.9 F 11/09/21 06:53 Pulse 105 H 11/09/21 06:53 Resp 18 11/09/21 06:53 BP 106/78 11/09/21 06:53 Pulse Ox 97 11/09/21 06:53 FiO2 Intake & Output 11/08/21 11/09/21 11/09/21 18:59 06:59 18:59 Intake Total 600 240 Balance 600 240 Intake: Oral 600 240 Other: Voiding Method Toilet # Voids 1 - Labs CBC & Chem 7: 11/05/21 00:09 11/07/21 05:41 Labs: Abnormal Lab Results - Last 24 Hours (Table) 11/08/21 11/08/21 11/08/21 Range/Units 11:32 17:13 20:42 POC Glucose (mg/dL) 266 H 186 H 116 H (70-110) mg/dL 11/09/21 Range/Units 06:51 POC Glucose (mg/dL) 126 H (70-110) mg/dL
--- NOTE | 2021-11-09 13:43 | P.DS ---
Providers Date of admission: 11/06/21 02:02 Expected date of discharge: 11/09/21 Attending physician: Alberto Ortega Consults: 11/06/21 02:02 Consult Physician Routine Consulting Provider: Socrates Hdez Consult Reason/Comments: chest pain Do you want consulting provider notified?: Yes Primary care physician: Douglas Johnston MD Hospital Course: Hospital course: This is a 71-year-old patient who follows with Dr. Douglas Johnston. Chronic stable medical conditions include diabetes, hypertension, hyperlipidemia, osteoarthritis. Also significant follows with Dr. Rudd. Her boat loader helper is Dr. Howard. Patient presented with chest pain and shortness of breath with exertion. November 07: I assumed care from Dr. Ruiz. Patient been up to the bathroom. No chest pain. PE was ruled out with VQ scan. Started on oral amiodarone by cardiology. Oral intake is fair. Discussed with patient. November 08: Patient heart rate up to 120s addressed today. Dose of Lopressor increased. Had a lengthy discussion with the patient. Symptoms medications discussed. Increase activity as tolerated. We will watch blood pressure and heart rate closely. November 09: Heart rate somewhat better control. Cleared by cardiology for discharge. Does follow with Dr. Howard. Fluid restriction 2000 mL to continue. Discussed with patient. Questions answered. Discussion and discharge planning more than 35 minutes On examination: VITAL SIGNS: 98.6, 105, 18, 10 6 x 77, 97% room air GENERAL APPEARANCE: up in a chair, awake, HEENT: Normal external appearance of nose and ear. Oral cavity normal EYES: Pupils equal. Conjunctiva normal. NECK: JVD not raised. Mass not palpable. RESPIRATORY: Respiratory effort normal. Lungs clear to auscultation. CARDIOVASCULAR: Heart sounds irregular. No edema. ABDOMEN: Soft. Liver and spleen not palpable. No tenderness. No mass palpable. PSYCHIATRY: Alert and oriented x3. Mood and affect normal. MUSCULAR skeletal: Evidence of OA INVESTIGATIONS, reviewed in the clinical context: White count 12.5 hemoglobin 13.4 platelets 133 potassium 4.5 BUN 32 creatinine 1.95 Troponin I 3 negative ProBNP 3790 VQ scan: Low probably for pulmonary embolism Chest without contrast: Cardiomegaly. No avascular congestion. Bilateral pleural effusion. Pulmonary hypertension suggested. Some coronary artery atherosclerosis. Assessment and plan: -Persistent atrial fibrillation, rate better controlled Eliquis. amiodarone 400 mg twice a day Toprol-XL 150 mg daily. -Hyperuricemia, gout gout Allopurinol 200 mg a day -Hyperlipidemia Zocor 20 mg daily at bedtime -Essential hypertension Toprol-XL 150 mg day. Cozaar 25 mg a day -Diabetes mellitus type 2 on oral hypoglycemic Amaryl 4 mg daily. Follow Accu-Cheks. Chronicity injection -Vitamin B12 deficiency Thousand micrograms by mouth daily -Acute on chronic congestive heart failure exacerbation, preserved LV function from outpatient.: Better Demadex 10 mg a day. Fluid restriction 2000 mL a day. Disposition: Home Plan - Discharge Summary Discharge Rx Participant: No New Discharge Prescriptions: New Atorvastatin [Lipitor] 20 mg PO HS #30 tab Amiodarone [Cordarone] 400 mg PO BID #180 tab Metoprolol Succinate (ER) [Toprol XL] 150 mg PO DAILY #90 tab Continue Latanoprost Ophth [Xalatan 0.005%] 1 drop BOTH EYES HS Magnesium Oxide 400 mg PO DAILY Losartan [Cozaar] 25 mg PO DAILY Glimepiride [Amaryl] 4 mg PO DAILY Dulaglutide [Trulicity] 1.5 mg SQ MO allopurinoL [Zyloprim] 200 mg PO DAILY Apixaban [Eliquis] 5 mg PO BID Cyanocobalamin (Vitamin B-12) [Vitamin B-12] 1,000 mcg PO DAILY Torsemide [Demadex] 10 mg PO DAILY Ferrous Sulfate [Iron (65 MG Elemental)] 325 mg PO BID Discontinued Simvastatin [Zocor] 20 mg PO HS Metoprolol Succinate (ER) [Toprol Xl] 100 mg PO DAILY Discharge Medication List Latanoprost Ophth [Xalatan 0.005%] 1 drop BOTH EYES HS 02/13/17 [History] Apixaban [Eliquis] 5 mg PO BID 11/06/21 [History] Cyanocobalamin (Vitamin B-12) [Vitamin B-12] 1,000 mcg PO DAILY 11/06/21 [History] Dulaglutide [Trulicity] 1.5 mg SQ MO 11/06/21 [History] Ferrous Sulfate [Iron (65 MG Elemental)] 325 mg PO BID 11/06/21 [History] Glimepiride [Amaryl] 4 mg PO DAILY 11/06/21 [History] Losartan [Cozaar] 25 mg PO DAILY 11/06/21 [History] Magnesium Oxide 400 mg PO DAILY 11/06/21 [History] Torsemide [Demadex] 10 mg PO DAILY 11/06/21 [History] allopurinoL [Zyloprim] 200 mg PO DAILY 11/06/21 [History] Amiodarone [Cordarone] 400 mg PO BID #180 tab 11/08/21 [Rx] Metoprolol Succinate (ER) [Toprol XL] 150 mg PO DAILY #90 tab 11/08/21 [Rx] Atorvastatin [Lipitor] 20 mg PO HS #30 tab 11/09/21 [Rx] Follow up Appointment(s)/Referral(s): Douglas Johnston MD [Primary Care Provider] - 1-2 days Socrates Hdez MD [STAFF PHYSICIAN] - 1 Week Activity/Diet/Wound Care/Special Instructions: fluid restrict 2000 cc/day Discharge Disposition: HOME SELF-CARE
== END 2021-11-09 11:54 | disposition home or self-care (01) ==
LOC: EC 20:11 → 6NMEDSUR 11-06 02:02
PROVIDERS: ADMIT Hospitalist; ATTEND Hospitalist
DX: R07.89 Other chest pain (principal); I13.0 Hypertensive heart and chronic kidney disease with heart failure and stage 1 through stage 4 chronic kidney disease, or unspecified chronic kidney disease; I50.33 Acute on chronic diastolic (congestive) heart failure; I48.11 Longstanding persistent atrial fibrillation; E11.22 Type 2 diabetes mellitus with diabetic chronic kidney disease; N18.9 Chronic kidney disease, unspecified; I45.2 Bifascicular block; R79.89 Other specified abnormal findings of blood chemistry; E53.8 Deficiency of other specified B group vitamins; M10.9 Gout, unspecified; M19.90 Unspecified osteoarthritis, unspecified site; E78.5 Hyperlipidemia, unspecified; H40.9 Unspecified glaucoma; R42 Dizziness and giddiness; I25.10 Atherosclerotic heart disease of native coronary artery without angina pectoris; Z79.01 Long term (current) use of anticoagulants; Z79.84 Long term (current) use of oral hypoglycemic drugs; Z79.82 Long term (current) use of aspirin; Z79.899 Other long term (current) drug therapy; Z88.8 Allergy status to other drugs, medicaments and biological substances; Z90.710 Acquired absence of both cervix and uterus; Z96.651 Presence of right artificial knee joint; Z98.42 Cataract extraction status, left eye; Z98.41 Cataract extraction status, right eye; Z98.890 Other specified postprocedural states; Z82.49 Family history of ischemic heart disease and other diseases of the circulatory system; Z83.3 Family history of diabetes mellitus
CPT/HCPCS: 96375; 96374; 99285; 36415; 93005; 85379; 83880; 80061; 80053; 80048; 83735; 84484 ×2; 85025; 85610; 85730; 71046; 71250; 78582; G0378 ×4; A9540; A9567; J2060; J1940

== ENCOUNTER → 2023-05-05 | Outpatient (CLI) | payer MEDICARE ==
[2023-05-05 19:23] LABS: ALT 16 U/L (8-44); AST 17 U/L (13-35); Albumin 4.3 g/dL (3.8-4.9); Albumin/Globulin Ratio 1.34 Ratio (1.60-3.17); Alkaline Phosphatase 177 U/L (41-126); Blood Urea Nitrogen 20.8 mg/dL (9.0-27.0); Calcium 10.5 mg/dL (8.7-10.3); Carbon Dioxide 25.8 mmol/L (21.6-31.8); Chloride 100 mmol/L (96-109); Globulin 3.2 g/dL (1.6-3.3); Glucose 178 mg/dL (70-110); Potassium 4.1 mmol/L (3.5-5.5); Sodium 139 mmol/L (135-145); Total Bilirubin 0.6 mg/dL (0.3-1.2); Total Protein 7.5 g/dL (6.2-8.2)
== END | disposition home or self-care (01) ==
LOC: LABWHC1 14:55
PROVIDERS: ATTEND Internal Medicine Critical Care Medicine
DX: D86.9 Sarcoidosis, unspecified (principal)
CPT/HCPCS: 36415; 80053; 82164; 85652; 86140

== ENCOUNTER → 2023-05-12 | Outpatient (CLI) | payer MEDICARE ==
[2023-05-13 06:29] LABS: Calcium 24 Hour,Urine 283.2 mg/24Hr (100.0-300.0)
== END | disposition home or self-care (01) ==
LOC: LABWHC1 10:46
PROVIDERS: ATTEND Internal Medicine Critical Care Medicine
DX: D86.9 Sarcoidosis, unspecified (principal)
CPT/HCPCS: 81050; 82340

== ENCOUNTER 2023-05-19 10:34 | Day surgery (SDC) | payer MEDICARE ==
[2023-05-12 09:31] VITALS: BMI 33.3
[~2023-05-19 10:34] MED LIST: ATROPINE SULFATE 0.4 MG/ML 1 ML VIAL IM ONE; LACTATED RINGERS 1,000 ML IV SCH
[2023-05-19] MEDS ORDERED: LACTATED RINGERS 1,000 ML IV ONE (11:04)
[2023-05-19 11:25] LABS: Glucose,Whole Blood 130 mg/dL (70-110)
[2023-05-19] MEDS ORDERED: DEXAMETHASONE SOD PHOSPHATE 4 MG/ML 1 ML VIAL IVP ONE (11:29)
[2023-05-19] MEDS ORDERED: ONDANSETRON 4 MG/2 ML VIAL ONE (11:29)
[2023-05-19] MEDS ORDERED: ONDANSETRON 4 MG/2 ML VIAL IVP ONE (11:29)
[2023-05-19] MEDS ORDERED: ATROPINE SULFATE 0.4 MG/ML 1 ML VIAL ONE (11:29)
[2023-05-19] MEDS ORDERED: fentaNYL (PF) 50 MCG/ML 2 ML AMP ONE (11:42)
[2023-05-19] MEDS ORDERED: SUCCINYLCHOLINE CHLORIDE 200 MG/10 ML VIAL IV ONE (11:42)
[2023-05-19] MEDS ORDERED: PROPOFOL 10 MG/ML 20 ML VIAL IV ONE (11:42)
[2023-05-19] MEDS ORDERED: LIDOCAINE 1% INJ 10MG/ML (20 ML MDV) ONE (11:42)
[2023-05-19 12:17] VITALS: TEMP 97
[2023-05-19 12:27] LABS: Glucose,Whole Blood 118 mg/dL (70-110)
--- NOTE | 2023-05-19 12:44 | PCN ---
PROCEDURE NOTE PROCEDURES PERFORMED: Bronchoscopy, airway examination, therapeutic lavage, BAL, brushes right lower lobe endobronchial and transbronchial biopsies right lower lobe washes, BAL right lower lobe. PREOPERATIVE DIAGNOSIS: Rule out sarcoidosis. POSTOPERATIVE DIAGNOSIS: Rule out sarcoidosis. PEDIATRIC GENETICIST: First surgical training specialist was Dr. Ladonna Atkinson. ANESTHESIA: Provided general anesthesia. DESCRIPTION OF PROCEDURE: The patient's procedure took place in [facility] room #1. There was informed consent and universal timeout. After the patient was under the effects of general anesthesia, the bronchoscope was inserted through the bronchoscope adapter connected to the endotracheal tube. The bronchoscope was pushed through the endotracheal tube out into the distal trachea. The right and left lung were evaluated. The right upper lobe and its 3 segments, right middle lobe and its 2 segments, right lower lobe and its 5 segments, left upper lobe and its 2 segments, lingula and its 2 segments and left lower lobe and its 4 segments were all found to be within normal range. I did not appreciate the typical cobblestone pattern that we typically see in patients who have endobronchial sarcoid. Next, under fluoroscopic guidance, we did brushes to the right lower lobe. After that, we did multiple endobronchial and transbronchial biopsies to the right lower lobe under fluoroscopic guidance. We got at least 9 good biopsy pieces. Finally, we did a BAL in the right lower lobe. The patient tolerated the procedure well. There was minimal bleeding. We ensured hemostasis before the bronchoscope was withdrawn. After the bronchoscope was withdrawn, we looked with the fluoro machine to make sure there was no pneumothorax. We did not see one. The patient will have a postprocedure x-ray. The patient will be recovered. There was no immediate complication. The specimen will be sent to the laboratory for analysis. MMODL / IJN: [id number] /
--- NOTE | 2023-05-19 13:03 | XR ---
EXAMINATION TYPE: XR chest 1V portable DATE OF EXAM: 05/19/2023 COMPARISON: 11/05/2021 INDICATION: Post bronchoscopy TECHNIQUE: Single frontal view of the chest is obtained. FINDINGS: The heart size is normal. The pulmonary vasculature is normal. Mild infiltration of the right mid lung. No pneumothorax is evident. IMPRESSION: 1. No pneumothorax post bronchoscopy. 2. Mild diffuse infiltrates in the right midlung.
[2023-05-19 13:29] VITALS: PULSE 74; RESP 16
[2023-05-19 13:52] VITALS: BP 139/80
--- NOTE | 2023-05-19 15:01 | FL ---
EXAMINATION TYPE: FL bronchoscopy DATE OF EXAM: 05/19/2023 CLINICAL HISTORY: 72-year-old female CHRONIC COUGH BRONCH TO BE DONE IN ENDO TECHNIQUE: Fluoroscopy. COMPARISON: None. FINDINGS: Right side bronch with biopsies 31 sec fl 1.0662 Gycm2 DAP 3 images submitted. IMPRESSION: Procedural fluoroscopy as above.
[2023-05-20 06:13] LABS: Appearance,BF Grossly Bloody (Clear); RBC, Body Fluid 9250000 /UL (0-2000)
[2023-05-22 09:32] LABS: Nucleated Cells, Body Fluid 23900 /UL
== END 2023-05-19 13:59 | disposition home or self-care (01) ==
LOC: ORWHC2ENDO 10:34
PROVIDERS: ATTEND Internal Medicine Critical Care Medicine
DX: R91.8 Other nonspecific abnormal finding of lung field (principal); I48.91 Unspecified atrial fibrillation; E78.5 Hyperlipidemia, unspecified; I10 Essential (primary) hypertension; E11.9 Type 2 diabetes mellitus without complications; M19.90 Unspecified osteoarthritis, unspecified site; Z79.01 Long term (current) use of anticoagulants; Z79.899 Other long term (current) drug therapy; Z79.85 Long-term (current) use of injectable non-insulin antidiabetic drugs; Z90.710 Acquired absence of both cervix and uterus; Z96.651 Presence of right artificial knee joint; Z98.890 Other specified postprocedural states
CPT/HCPCS: 87798 ×3; 87496; 87498; 87529; 88104; 88108; 88305; 89050; 87502; 87634; 87070; 87205; 87116; 87102; 87206; 87635; 71045; 31628; 31625; 31623; 31624; J0330; J0461; J1100; J2405; J2001; J3010; J2704; 31622

== ENCOUNTER → 2023-05-26 | Outpatient (CLI) | payer MEDICARE ==
[~2023-05-26] MED LIST changes: -ATROPINE SULFATE 0.4 MG/ML 1 ML VIAL IM ONE; -LACTATED RINGERS 1,000 ML IV SCH; +SODIUM CHLORIDE 0.9% 500 ML 500 ML in EMPTY BAG 1 BAG IV PRN; +ZOLEDRONIC ACID 5 MG in SODIUM CHLORIDE 0.9% 100 ML IV NR
[2023-05-26 12:32] VITALS: BP 138/83; PULSE 69; RESP 16; TEMP 97.6
== END ==
LOC: PROCWHC3 12:05
PROVIDERS: ATTEND Internal Medicine
DX: E83.52 Hypercalcemia (principal)
CPT/HCPCS: 96365; J3489

== ENCOUNTER → 2024-06-28 | Day surgery (SDC) | payer MEDICARE ==
[2024-06-27 09:26] VITALS: BMI 36.6
[~2024-06-28] MED LIST changes: +LIDOCAINE 1% INJ 10MG/ML (20 ML MDV) ONE; +PROPOFOL 10 MG/ML 20 ML VIAL IV ONE; -SODIUM CHLORIDE 0.9% 500 ML 500 ML in EMPTY BAG 1 BAG IV PRN; -ZOLEDRONIC ACID 5 MG in SODIUM CHLORIDE 0.9% 100 ML IV NR
[2024-06-28 09:52] VITALS: RESP 16; TEMP 97.6
[2024-06-28 10:01] LABS: Glucose,Whole Blood 166 mg/dL (70-110)
[2024-06-28] MEDS: LACTATED RINGERS 1,000 ML IV SCH (10:01)
[2024-06-28] MEDS: IV FLUID CONTINUATION 1,000 ML IV ONE (10:02)
--- NOTE | 2024-06-28 11:03 | P.PCN ---
Date of Procedure: 06/28/24 Procedure(s) Performed: BRIEF HISTORY: Patient is a 73-year-old, pleasant, white female scheduled for an upper endoscopy as a part of screening for esophageal varices. She was diagnosed with nonalcoholic fatty liver disease with liver cirrhosis.. PROCEDURE PERFORMED: Esophagogastroduodenoscopy. PREOPERATIVE DIAGNOSIS: History of liver cirrhosis screening for esophageal varices. IV sedation per anesthesia. PROCEDURE: After informed consent was obtained, the patient was brought into the endoscopy unit. IV sedation was administered by Anesthesia under continuous monitoring. Initially the Olympus GIF-140 video endoscope was inserted into the mouth. Esophagus intubated without any difficulty. It was gradually advanced into the stomach and duodenum and carefully examined. The bulb and the second part of the duodenum appeared normal. The scope at this time was withdrawn to the stomach, adequately insufflated with air, and upon careful examination, mucosa of the antrum, body, cardia and the fundus appeared normal. No gastric varices seen. The scope was then withdrawn into the esophagus. The GE junction was located at 39 cm from the incisors. There was 1 superficial erosion in the distal esophagus consistent with LA grade a reflux esophagitis. Rest of the esophagus appeared normal. There were no esophageal varices seen. The patient tolerated the procedure well. IMPRESSION: 1. No evidence of gastric or esophageal varices. 2. Superficial erosion at the GE junction consistent with LA grade B reflux esophagitis. RECOMMENDATIONS: The findings of this examination were discussed with the patient as well as her family. She was advised to have repeat upper endoscopy in 3 years to screen for esophageal varices..
[2024-06-28 11:45] VITALS: BP 118/67; PULSE 90
== END ==
LOC: ORWHC2ENDO 09:24
PROVIDERS: ATTEND Internal Medicine Gastroenterology
DX: K74.60 Unspecified cirrhosis of liver (principal); K76.0 Fatty (change of) liver, not elsewhere classified
CPT/HCPCS: 43235; J2003; J2704